=== PATIENT | male | born 1995 | race Caucasian/White ===

== ENCOUNTER 2017-01-27 02:02 | Emergency (ER) | payer BC ==
[2017-01-27 02:26] VITALS: O2SAT 95
[2017-01-27 02:39] LABS: % IMMATURE GRANULYOCYTES 0.7 % (0.0-1.1); ABSOLUTE IMMATURE GRANULOCYTES 0.07 10^3/uL (0.00-0.10); ADD DIFF? NO; ADD MORPH? NO; ADD SCAN? NO; ATYPICAL LYMPHOCYTE FLAG 20 (0-99); FRAGMENT RBC FLAG 0 (0-99); HEMATOCRIT 48.4 % (40.0-51.0); LEFT SHIFT FLG 0 (0-99); LIPEMIA HEMOLYSIS FLAG 90 (0-99); MEAN CELL HEMOGLOBIN 30.9 pg (27.9-34.1); MEAN CELL HEMOGLOBIN CONCENTR. 35.1 g/dL (32.4-36.7); MEAN PLATELET VOLUME 9.7 fL (8.7-11.7); PLATELET CLUMPS FLAG 20 (0-99); PLATELET COUNT 192 10^3/uL (150-400); RED CELL DISTRIBUTION WIDTH 13.3 % (11.5-15.2)
[2017-01-27 02:55] LABS: ANION GAP 20 mEq/L (8-16); CARBON DIOXIDE 21 mEq/l (22-31); CHLORIDE 105 mEq/L (97-110); CREATININE 0.7 mg/dL (0.7-1.3); GLOMERULAR FILTRATION RATE > 60; GLUCOSE 103 mg/dL (70-100); SODIUM 146 mEq/L (134-144)
[2017-01-27 03:07] LABS: ETHANOL SERUM 297 mg/dL (0-10)
--- NOTE | 2017-01-27 04:35 | EDPHY ---
H & P Stated Complaint: M-1 HOLD, ETOH AND DEPRESSION - Personal History Current Tetanus/Diphtheria Vaccine: Yes Current Tetanus Diphtheria and Acellular Pertussis (TDAP): Yes - Medical/Surgical History Hx Asthma: No Hx Chronic Respiratory Disease: No Hx Diabetes: No Hx Cardiac Disease: No Hx Renal Disease: No Hx Cirrhosis: No Hx Alcoholism: No Hx HIV/AIDS: No Hx Splenectomy or Spleen Trauma: No Other PMH: ETOH ABUSE, DEPRESSION - Social History Smoking Status: Never smoked Time Seen by Provider: 01/27/17 03:27 HPI/ROS: Chief Complaint: Suicidal, intoxication HPI: 21-year-old male with a history of depression has been drinking tonight and was expressing suicidal ideation to friends. Patient states he wanted to "drink himself to ". Patient has slurred speech and appears very clinically intoxicated. Denies any falls or head injuries. Denies any chest pain or shortness of breath. No nausea or vomiting. Has a history of depression and suicidality when drinking alcohol in the past. Please for called. They placed him on a mental health hold. ROS: 10 point Review of Systems is negative except as noted in the HPI. PMH: Depression Social History: No smoking, positive alcohol, no recreational drug use Family History: non-contributory Physical Exam: Gen: Awake, slurred speech, smells of alcohol HEENT: Nose: no rhinorrhea Eyes: PERRLA, EOMI Mouth: Moist mucosa Neck: Supple, no JVD Chest: nontender, lungs clear to auscultation Heart: S1, S2 normal, no murmur Abd: Soft, non-tender, no guarding Back: no CVA tenderness, no midline tenderness Ext: no edema, non-tender Skin: no rash Neuro: CN II-XII intact, Sensation grossly intact, Strength 5/5 in bilateral upper and lower extremities (Renard Galicia) Constitutional: Initial Vital Signs Temperature (C) 36.7 C 01/27/17 02:10 Heart Rate 98 01/27/17 02:10 Respiratory Rate 16 01/27/17 02:10 Blood Pressure 127/81 H 01/27/17 02:10 O2 Sat (%) 95 01/27/17 02:10 O2 Delivery Mode Room Air Allergies/Adverse Reactions: SEASONAL Allergy (Uncoded 01/27/17 02:27) Home Medications: Medication Instructions Recorded ACCUTANE 01/27/17 Cetirizine HCl [ZYRTEC] 10 mg PO 01/27/17 Medical Decision Making ED Course/Re-evaluation: [address] Pittman pending sobriety and mental health evaluation. (Renard Galicia) This patient was turned over to me at change of shift. He is now completely clinically sober. He is not suicidal nor is he homicidal. He says he was just making symptom statements when he was drunk last night. It happened to him in the past. He would like to go home and attend class today. 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 I do not find this patient to be a risk to himself or others I am dropping the hold which was placed while the patient was considerably intoxicated (Bharathi Pittman) - Data Points Laboratory Results: Laboratory Results 01/27/17 02:30 01/27/17 02:28 01/27/17 01/27/17 01/27/17 02:48 02:30 02:28 WBC 10.23 10^3/uL H 10^3/uL (3.80-9.50) RBC 5.50 10^6/uL 10^6/uL (4.40-6.38) Hgb 17.0 g/dL g/dL (13.7-17.5) Hct 48.4 % % (40.0-51.0) MCV 88.0 fL fL (81.5-99.8) MCH 30.9 pg pg (27.9-34.1) MCHC 35.1 g/dL g/dL (32.4-36.7) RDW 13.3 % % (11.5-15.2) Plt Count 192 10^3/uL 10^3/uL (150-400) MPV 9.7 fL fL (8.7-11.7) Neut % (Auto) 32.7 % L % (39.3-74.2) Lymph % (Auto) 52.8 % H % (15.0-45.0) [place] % (Auto) 9.8 % % (4.5-13.0) Eos % (Auto) 3.0 % % (0.6-7.6) Baso % (Auto) 1.0 % % (0.3-1.7) Nucleat RBC Rel Count 0.0 % % (0.0-0.2) Absolute Neuts (auto) 3.35 10^3/uL 10^3/uL (1.70-6.50) Absolute Lymphs (auto) 5.40 10^3/uL H 10^3/uL (1.00-3.00) Absolute Monos (auto) 1.00 10^3/uL H 10^3/uL (0.30-0.80) Absolute Eos (auto) 0.31 10^3/uL 10^3/uL (0.03-0.40) Absolute Basos (auto) 0.10 10^3/uL 10^3/uL (0.02-0.10) Absolute Nucleated RBC 0.00 10^3/uL 10^3/uL (0-0.01) Immature Gran % 0.7 % % (0.0-1.1) Immature Gran # 0.07 10^3/uL 10^3/uL (0.00-0.10) Sodium 146 mEq/L H mEq/L (134-144) Potassium 4.0 mEq/L mEq/L (3.5-5.2) Chloride 105 mEq/L mEq/L (97-110) Carbon Dioxide 21 mEq/l L mEq/l (22-31) Anion Gap 20 mEq/L H mEq/L (8-16) BUN 6 mg/dL L mg/dL (7-23) Creatinine 0.7 mg/dL mg/dL (0.7-1.3) Estimated GFR > 60 Glucose 103 mg/dL H mg/dL (70-100) Calcium 9.0 mg/dL mg/dL (8.5-10.4) Urine Opiates Screen NEGATIVE (NEGATIVE) Urine Barbiturates NEGATIVE (NEGATIVE) Ur Phencyclidine Scrn NEGATIVE (NEGATIVE) Ur Amphetamine Screen NEGATIVE (NEGATIVE) U Benzodiazepines Scrn NEGATIVE (NEGATIVE) Urine Cocaine Screen NEGATIVE (NEGATIVE) U Marijuana (THC) Screen NEGATIVE (NEGATIVE) Ethyl Alcohol 297 mg/dL H mg/dL (0-10) Departure - Departure Disposition: Home, Routine, Self-Care Clinical Impression: Alcohol intoxication Qualifiers: Complication of substance-induced condition: uncomplicated Qualified Code(s): F10.920 - Alcohol use, unspecified with intoxication, uncomplicated Condition: Good Instructions: Alcohol Intoxication (ED) Referrals: NONE *PRIMARY CARE P,. [Primary Care Provider] - As per Instructions
[2017-01-27 07:11] VITALS: BP 119/67; PULSE 94; RESP 18; TEMP 97.9
== END 2017-01-27 07:27 | disposition home or self-care (01) ==
LOC: EEVIPCON 02:02
DX: F10.920 Alcohol use, unspecified with intoxication, uncomplicated (principal)
CPT/HCPCS: 80305; G0480

== ENCOUNTER 2018-04-16 17:50 | Emergency (ER) | payer BC ==
[2018-04-16 18:00] VITALS: BP 121/58
--- NOTE | 2018-04-16 18:25 | EDPHY ---
H & P Time Seen by Provider: 04/16/18 18:12 HPI/ROS: CLINICAL IMPRESSION: Right skier's thumb ASSESSMENT/PLAN: 22-year-old male presents to the emergency department with 2 weeks of right thumb pain after he injured the thumb playing Siperian. Patient has no reproducible bony point tenderness, scaphoid tenderness, deformity, neurovascular deficits, or limitations with range of motion. Mechanism of injury is suggestive of possible gamekeeper's thumb injury . He was placed in a thumb spica splint for comfort, rice treatment discussed, orthopedic referral given, warning signs return to ED sooner alignment discharge. DIFFERENTIAL DX: Acute fracture, dislocation, ligamentous injury ]ED PROCEDURES:] Procedure: Splint placement. A Velcro thumb spica splint was applied, to the right hand. After application of the splint I returned and re-examined the patient. The splint was adequately immobilizing the joint and distal to the splint the patient's circulation and sensation was intact. ED COURSE: CHIEF COMPLAINT: Right thumb pain HPI: This is a right-hand dominant 22-year-old male presents to the emergency department with with right thumb pain x2 weeks after injuring the thumb playing Siperian. Patient reports the pain was improving but then began hurting again. He has continued to play [employer]. No other trauma. No reported numbness or tingling. No obvious joint deformity or swelling. No loss of sensation to the finger or thumbs. He has not been splinting the hand. He stopped using ice and ibuprofen 2 weeks ago. PAST MEDICAL HISTORY: None reported Pertinent Past Surgical History: No prior Ortho surgery Family History: Noncontributory Social History: Otherwise healthy, right-hand dominant ROS: A full 10 point review of systems was negative except for those mentioned in HPI. PHYSICAL EXAM: General Appearance: Alert, oriented, appropriate, cooperative, NAD, well hydrated, non-toxic appearing, VSS, no hypoxia. Skin: Warm, dry, no rashes, no nodules on palpation. Musculoskeletal: No reproducible bony point tenderness along palpation of the right hand and thumb. Full range of motion of the thumb. No scaphoid tenderness. Negative Carmela test. Patient reports pain with forceful extension of the thumb. MEDICAL DECISION MAKING: Patient was seen independently. Secondary supervising physician at time of evaluation was Dr. Jernigan. Diagnosis: Right gamekeeper's thumb. New, requires workup Summary: See Assessment and Plan for summary of ED visit Patient Progress: Stable. Smoking Status: Never smoked Constitutional: Initial Vital Signs Temperature (C) 36.7 C 04/16/18 17:57 Heart Rate 71 04/16/18 17:57 Respiratory Rate 18 04/16/18 17:57 Blood Pressure 121/58 H 04/16/18 17:57 O2 Sat (%) 96 04/16/18 17:57 O2 Delivery Mode Room Air Allergies/Adverse Reactions: SEASONAL Allergy (Uncoded 04/16/18 18:00) Home Medications: Medication Instructions Recorded NK [No Known Home Meds] 04/16/18 MDM/Departure - Depart Disposition: Home, Routine, Self-Care Clinical Impression: Pain in thumb joint with movement of right hand Condition: Good Instructions: Skier's Thumb (ED), Swollen Joint (ED) Additional Instructions: DISCHARGE INSTRUCTIONS FROM YOUR DOCTOR Thank you for visiting our emergency department today. Please keep in mind that discharge from the emergency department does not mean that there is nothing wrong - it simply means that we have not identified an emergency condition that requires further evaluation or treatment in the hospital. You should always plan to follow up with primary care for re-evaluation of your condition in the next 2-3 days. If you have been referred to a specialist, please call as soon as possible (today or tomorrow) to schedule your follow up appointment at the appropriate time. We placed you in a Velcro thumb spica splint today. You may have sustained a ligamentous injury to the thumb. If pain is not improving in 3-5 days, please consider orthopedic follow-up. A referral was given. Avoid activities that exacerbate your pain. Return to the emergency department for severe pain, loss of sensation to the hand or fingers, fever or any other concern. People present with illnesses and injuries in different ways, and it is always possible that we have missed something. You may always return for re-evaluation if symptoms worsen or if they are not improving or if you develop new/different symptoms. Again, thank you for choosing our emergency department. We hope that you feel better. Referrals: DOMINIK GUY [Other] - As per Instructions Viktor Shrestha MD [Medical Doctor] - 3-4 days, if not improved
== END 2018-04-16 18:46 | disposition home or self-care (01) ==
DX: M79.644 Pain in right finger(s) (principal); W21.89XA Striking against or struck by other sports equipment, initial encounter; Y93.74 Activity, frisbee
CPT/HCPCS: L3807

== ENCOUNTER 2018-06-14 07:15 | Emergency (ER) | payer BC ==
[2018-06-14] MEDS ORDERED: NS 1,000 ML IV ONE (07:37)
--- NOTE | 2018-06-14 07:44 | EDPHY ---
HPI/HX/ROS/PE/MDM Narrative: CHIEF COMPLAINT: "I fell on my back" HPI: The patient is a 22 y/o male arriving with his friend complaining of left- sided back pain secondary to a fall while intoxicated last night, about 7 hours ago. He says he was competing in the "[employer]" last night with friends in which he drank a 5th of hard alcohol and a 30-rack of beer, ate 2 large pizzas, and tried to complete a jigsaw puzzle. At some point during the night he tried to kick his friend's phone off the porch and fell down a few stairs onto the left side of his back and flank. He came in this morning because he was unable to sleep due to pain in this area. His pain is worse with movement and palpation. He denies chest pain, dyspnea, urinary symptoms, headache, weakness, paresthesias, or other trauma from the fall. He is normally healthy. REVIEW OF SYSTEMS: A comprehensive 10 system review of systems is otherwise negative aside from elements mentioned in the history of present illness. PMH: Denies SOCIAL HISTORY: Friend at bedside. Heavy alcohol use last night. Lives in [place]. [employer] student. PHYSICAL EXAM: General:Patient is alert, in no acute distress. ENT:Eyes are normal to inspection. ENT inspection normal. Neck: Normal inspection. Full range of motion. Respiratory:No respiratory distress. Breath sounds normal bilaterally. Cardiovascular: Regular rate and rhythm. Strong peripheral pulses. Normal cap refill. Abdomen:The abdomen has left lateral tenderness to palpation. There are no peritoneal signs. Back: Left flank/soft tissue tenderness is present. Abrasion to left upper buttock/low lumbar area, no midline tenderness Skin: Normal color. No rash. Warm and dry. [place] on left forearm patient states are the number of shots he consumed last night. Extremities: Normal appearance. Full range of motion. Neuro: Oriented x3. Normal motor function. Normal sensory function. ED Course: This is a healthy 22 y/o male who presents with left flank and left lateral abdomen tenderness secondary to a fall while intoxicated last night. He has significant tenderness over flank which is concerning for injury to his spleen. IV established. Plan for labs, UA, abdominal CT. 1L IV NS. Abdominal CT shows transverse process fractures of L2, L3, L4. No other injury. Reassessed patient and discussed findings. 1 tab [place] ordered. Patient will be discharged with standard care and follow up instructions. Return precautions discussed. He is comfortable with this plan. As these are stable fractures, I do not think emergent NSG consultation or bracing is indicated. 0900: Patient has requested I speak to his family via phone. I explained nature of injury and needed follow-up. The patient has requested pain medication. Given story of significant alcohol and substance abuse that led to this injury, as well as prior ED visit for severe alcohol intoxication that actually led to placement of an M1 hold, I have serious concerns about providing the patient with a prescription for narcotics. He can be evaluated by NSG and provided with additional medication if needed. I have recommended ibuprofen and tylenol. - Data Points Imaging Results: Imaging Impressions Abdomen CT 06/14/18 07:46 Impression: 1. Nondisplaced fractures left transverse process of L2, L3, and L4. 2. No evidence of acute organ injury. Findings discussed with Anival Phillips MD at 8:41 hour, 06/14/2018. Imaging: Discussed imaging studies w/ square dance caller Radiologist, I viewed and interpreted images myself Laboratory Results: Laboratory Results 06/14/18 07:42 06/14/18 06/14/18 07:48 07:42 WBC 9.57 10^3/uL H 10^3/uL (3.80-9.50) RBC 5.12 10^6/uL 10^6/uL (4.40-6.38) Hgb 15.8 g/dL g/dL (13.7-17.5) POC Hgb 16.0 gm/dL gm/dL (13.7-17.5) Hct 44.2 % % (40.0-51.0) POC Hct 47 % % (40-51) MCV 86.3 fL fL (81.5-99.8) MCH 30.9 pg pg (27.9-34.1) MCHC 35.7 g/dL g/dL (32.4-36.7) RDW 11.9 % % (11.5-15.2) Plt Count 244 10^3/uL 10^3/uL (150-400) MPV 9.9 fL fL (8.7-11.7) Neut % (Auto) 51.7 % % (39.3-74.2) Lymph % (Auto) 35.2 % % (15.0-45.0) [place] % (Auto) 9.2 % % (4.5-13.0) Eos % (Auto) 1.4 % % (0.6-7.6) Baso % (Auto) 0.9 % % (0.3-1.7) Nucleat RBC Rel Count 0.0 % % (0.0-0.2) Absolute Neuts (auto) 4.95 10^3/uL 10^3/uL (1.70-6.50) Absolute Lymphs (auto) 3.37 10^3/uL H 10^3/uL (1.00-3.00) Absolute Monos (auto) 0.88 10^3/uL H 10^3/uL (0.30-0.80) Absolute Eos (auto) 0.13 10^3/uL 10^3/uL (0.03-0.40) Absolute Basos (auto) 0.09 10^3/uL 10^3/uL (0.02-0.10) Absolute Nucleated RBC 0.00 10^3/uL 10^3/uL (0-0.01) Immature Gran % 1.6 % H % (0.0-1.1) Immature Gran # 0.15 10^3/uL H 10^3/uL (0.00-0.10) POC Sodium 143 mEq/L mEq/L (135-145) POC Potassium 3.6 mEq/L mEq/L (3.3-5.0) POC Chloride 102 mEq/L mEq/L (97-110) POC BUN 12 mg/dL mg/dL (7-23) POC Creatinine 0.8 mg/dL mg/dL (0.7-1.3) POC Glucose 96 mg/dL mg/dL (70-100) Medications Given: Discontinued Medications Sodium Chloride (Ns) 1,000 mls @ 0 mls/hr IV EDNOW ONE; Wide Open PRN Reason: Protocol Stop: 06/14/18 07:38 Last Admin: 06/14/18 07:42 Dose: 1,000 mls Oxycodone/Acetaminophen (Percocet 5/325) 1 tab PO EDNOW ONE Stop: 06/14/18 08:49 Last Admin: 06/14/18 08:51 Dose: 1 tab Point of Care Test Results: Chemistry 06/14/18 07:48 POC Sodium 143 mEq/L mEq/L (135-145) POC Potassium 3.6 mEq/L mEq/L (3.3-5.0) POC Chloride 102 mEq/L mEq/L (97-110) POC BUN 12 mg/dL mg/dL (7-23) POC Creatinine 0.8 mg/dL mg/dL (0.7-1.3) POC Glucose 96 mg/dL mg/dL (70-100) ISTAT H&H 06/14/18 07:48 POC Hgb 16.0 gm/dL gm/dL (13.7-17.5) POC Hct 47 % % (40-51) General Time Seen by Provider: 06/14/18 07:32 Initial Vital Signs: Initial Vital Signs Temperature (C) 36.9 C 06/14/18 07:28 Heart Rate 78 06/14/18 07:28 Respiratory Rate 18 06/14/18 07:28 Blood Pressure 147/67 H 06/14/18 07:28 O2 Sat (%) 96 06/14/18 07:28 O2 Delivery Mode Room Air Allergies/Adverse Reactions: SEASONAL Allergy (Uncoded 06/14/18 07:31) Home Medications: Medication Instructions Recorded Adderall 10 MG (*) 06/14/18 Departure - Departure Disposition: Home, Routine, Self-Care Clinical Impression: Lumbar transverse process fracture, L2, L3, L4, Contusion Condition: Good Instructions: Contusion in Adults (ED) Additional Instructions: 1. Use Tylenol and ibuprofen as directed for pain and inflammation over the next several days. 2. Expect to feel more sore tomorrow. You can use ice packs on sore areas intermittently if helpful for pain over the next 24-48 hours. 3. Follow up with back specialist in the next week. 4. Return for worsening of condition. Adult Pain & Fever Control: We recommend Acetaminophen (Tylenol) and Ibuprofen (Motrin,Advil) for pain and fever control. When fever is high or pain severe, both drugs can be used at the same time, but at different intervals. Please note the time differences. Your dose is: Acetaminophen 650mg every 4 to 6 hours Ibuprofen 600mg every 8 hours with food Note: do not take Acetaminophen with Hydrocodone (Vicodin, Lortab) or Oxycodone (Percocet). These medications also contain Acetaminophen. No more than 3000mg of Acetaminophen should be taken in 24 hours (for an adult). Referrals: Yeyo Aquino MD [Medical Doctor] - As per Instructions Report Scribed for: Anival Phillips Report Scribed by: Tri Dye Date of Report: 06/14/18 Time of Report: 07:44 Physician Review and Approval Statement: Portions of this note were transcribed by an ED scribe. I personally performed the history, physical exam, and medical decision making; and confirm the accuracy of the information in the transcribed note.
[2018-06-14] MEDS ORDERED: IOHEXOL 350mgI/ML (OMNIPAQUE) 150 ML BTL IV ONE (07:58)
[2018-06-14 08:10] LABS: PLATELET COUNT 244 10^3/uL (150-400)
[2018-06-14] MEDS ORDERED: OXYCODONE/APAP 5/325 TAB PO ONE (08:48)
[2018-06-14 09:23] VITALS: BP 128/73
== END 2018-06-14 09:20 | disposition home or self-care (01) ==
DX: S32.028A Other fracture of second lumbar vertebra, initial encounter for closed fracture (principal); S32.038A Other fracture of third lumbar vertebra, initial encounter for closed fracture; S32.048A Other fracture of fourth lumbar vertebra, initial encounter for closed fracture; W10.9XXA Fall (on) (from) unspecified stairs and steps, initial encounter; Y92.89 Other specified places as the place of occurrence of the external cause; Y93.89 Activity, other specified; Y99.9 Unspecified external cause status
CPT/HCPCS: 82435-PO; 82565-PO; 82947-PO; 84132-PO; 84295-PO; 84520-PO; 85014-ER; Q9967